=== PATIENT | female | born 1970 | race Caucasian/White ===

== ENCOUNTER 2017-02-05 11:02 | Emergency (ER) | payer SELFPAY ==
[~2017-02-05] VITALS: Ht 162.5 cm; Wt 102.5 kg
[~2017-02-05 11:02] MED LIST: ANAPROX DS550 MG PO; BACTRIM DS 8001 TAB PO; BIAXIN500 MG PO; CLARITIN10 MG PO; IBUPROFEN600 MG PO; LIDEX 0.05% CRE15 GM T; VITAMIN B12100 MCG PO; VITAMIN C100 MG PO; ZITHROMAX Z PA250 MG PO
[2017-02-05] MEDS ORDERED: PREDNISONE10 MG PO (11:29)
== END 2017-02-05 11:31 | disposition home or self-care (01) ==
LOC: ED 11:02
DX: L23.7 Allergic contact dermatitis due to plants, except food (principal); Z88.1 Allergy status to other antibiotic agents; Z88.6 Allergy status to analgesic agent

== ENCOUNTER 2020-03-20 05:49 | Emergency (ER) | payer OTHER ==
[~2020-03-20] VITALS: Ht 162.5 cm; Wt 114.8 kg
[~2020-03-20 05:49] MED LIST changes: +PREDNISONE10 MG PO
[2020-03-20 06:17] LABS: BASO # 0.1 10*3/uL (0.0-0.1); BASO % 0.5 % (0.0-1.0); EOS # 0.3 10*3/uL (0.0-0.4); EOS % 1.2 % (1.0-4.0); HEMATOCRIT 39.3 % (37.0-47.0); LYMPH # 2.9 10*3/uL (1.3-4.4); LYMPH % 13.1 % (27.0-41.0); MEAN CELL VOLUME 83.1 fl (81.0-99.0); MEAN CORPUSCULAR HGB 25.6 pg (27.0-31.0); MEAN CORPUSCULAR HGB CONC 30.8 g/dl (33.0-37.0); MEAN PLATELET VOLUME 9.8 fl (9.6-12.3); MONO # 1.2 10*3/uL (0.1-1.0); MONO % 5.7 % (3.0-9.0); NEUT # 17.3 10*3/uL (2.3-7.9); NEUT % 78.7 % (47.0-73.0); PLATELET COUNT AUTOMATED 515 10*3/uL (130-400); RED BLOOD COUNT 4.73 10*6/uL (4.10-5.10); RED CELL DISTRI WIDTH 14.7 % (0-14.5); WHITE BLOOD COUNT 21.9 10*3/uL (4.8-10.8)
[2020-03-20 06:27] LABS: ACT PARTIAL THROMBO TIME 27.1 SECONDS (20.0-32.1); INTERNATIONAL NORM RATIO 0.9 (2.0-3.5)
[2020-03-20 06:34] LABS: ALBUMIN 3.4 gm/dl (3.1-4.5); ALKALINE PHOSPHATASE 118 U/L (45-117); BUN 11 mg/dl (7-24); CHLORIDE 103 mmol/L (98-107); CREATININE 0.74 mg/dL (0.55-1.02); POTASSIUM 3.7 mmol/L (3.5-5.1); SGOT/AST 30 IU/L (3-35); SGPT/ALT 22 U/L (12-78); SODIUM 136 mmol/L (136-145); TOTAL PROTEIN 7.6 gm/dL (6.4-8.2)
[2020-03-20 06:44] LABS: TROPONIN I < 0.015 ng/ml (<0.045)
== END 2020-03-20 10:54 | disposition home or self-care (01) ==
LOC: ED 05:49
PROVIDERS: Emergency Medicine Emergency Medical Services
DX: R07.9 Chest pain, unspecified (principal); Z88.8 Allergy status to other drugs, medicaments and biological substances; Z79.899 Other long term (current) drug therapy; Z95.9 Presence of cardiac and vascular implant and graft, unspecified

== ENCOUNTER → 2020-04-19 | Outpatient (CLI) | payer OTHER ==
[2020-04-19 18:27] LABS: IRON 26 ug/dL (50-170); TOTAL IRON BINDING CAPACITY 337 ug/dl (250-450)
[2020-04-19 18:39] LABS: FERRITIN 55.6 ng/mL (10.0-291.0); PTH INTACT 47.8 pg/mL (18.5-88.0); VITAMIN D, 25-HYDROXY 14.8 ng/mL (30-100)
== END | disposition home or self-care (01) ==
LOC: LAB 17:38
PROVIDERS: ATTEND Nurse Practitioner Family
DX: E83.51 Hypocalcemia (principal); D64.9 Anemia, unspecified

== ENCOUNTER → 2020-06-01 | Outpatient (CLI) | payer OTHER | END | disposition home or self-care (01) | LOC: MAMMO 15:29 | PROVIDERS: ATTEND Nurse Practitioner Family | DX: Z12.31 Encounter for screening mammogram for malignant neoplasm of breast (principal); N39.3 Stress incontinence (female) (male); N94.10 Unspecified dyspareunia; Z01.419 Encounter for gynecological examination (general) (routine) without abnormal findings ==

== ENCOUNTER → 2020-07-28 | Outpatient (CLI) | payer OTHER | END | disposition home or self-care (01) | LOC: RAD 16:49 | PROVIDERS: ATTEND Nurse Practitioner Family | DX: D72.829 Elevated white blood cell count, unspecified (principal) ==

== ENCOUNTER → 2020-08-31 | Outpatient (CLI) | payer OTHER ==
[2020-08-31 08:43] LABS: BASO # 0.1 10*3/uL (0.0-0.1); BASO % 1.2 % (0.0-1.0); EOS # 0.5 10*3/uL (0.0-0.4); EOS % 4.7 % (1.0-4.0); HEMATOCRIT 41.6 % (37.0-47.0); LYMPH # 2.2 10*3/uL (1.3-4.4); LYMPH % 21.3 % (27.0-41.0); MEAN CELL VOLUME 84.2 fl (81.0-99.0); MEAN CORPUSCULAR HGB 25.7 pg (27.0-31.0); MEAN CORPUSCULAR HGB CONC 30.5 g/dl (33.0-37.0); MEAN PLATELET VOLUME 9.8 fl (9.6-12.3); MONO % 9.5 % (3.0-9.0); NEUT # 6.5 10*3/uL (2.3-7.9); NEUT % 62.3 % (47.0-73.0); PLATELET COUNT AUTOMATED 450 10*3/uL (130-400); RED BLOOD COUNT 4.94 10*6/uL (4.10-5.10); RED CELL DISTRI WIDTH 15.5 % (0-14.5); WHITE BLOOD COUNT 10.5 10*3/uL (4.8-10.8)
[2020-08-31 09:13] LABS: ALBUMIN 3.2 gm/dl (3.1-4.5); ALKALINE PHOSPHATASE 127 U/L (45-117); BUN 12 mg/dl (7-24); CHLORIDE 109 mmol/L (98-107); CHOLESTEROL 223 mg/dL (<200); CREATININE 0.73 mg/dL (0.55-1.02); HDL CHOLESTEROL 37 mg/dl (40-60); LDL CHOLESTEROL 158 mg/dL (9-159); SGOT/AST 22 IU/L (3-35); SGPT/ALT 34 U/L (12-78); SODIUM 140 mmol/L (136-145); TOTAL PROTEIN 7.4 gm/dL (6.4-8.2); TRIGLYCERIDES 141 mg/dl (<150); VLDL CHOLESTEROL 28 mg/dL (6-40)
== END | disposition home or self-care (01) ==
LOC: LAB 08:24
PROVIDERS: ATTEND Family Medicine
DX: Z51.81 Encounter for therapeutic drug level monitoring (principal)

== ENCOUNTER → 2020-11-08 | Outpatient (CLI) | payer OTHER ==
[2020-11-08 16:45] LABS: BASO # 0.1 10*3/uL (0.0-0.1); BASO % 0.6 % (0.0-1.0); EOS # 0.5 10*3/uL (0.0-0.4); EOS % 2.6 % (1.0-4.0); HEMATOCRIT 42.2 % (37.0-47.0); LYMPH # 3.4 10*3/uL (1.3-4.4); LYMPH % 17.2 % (27.0-41.0); MEAN CELL VOLUME 82.7 fl (81.0-99.0); MEAN CORPUSCULAR HGB 26.9 pg (27.0-31.0); MEAN CORPUSCULAR HGB CONC 32.5 g/dl (33.0-37.0); MEAN PLATELET VOLUME 9.9 fl (9.6-12.3); MONO % 5.2 % (3.0-9.0); NEUT # 14.5 10*3/uL (2.3-7.9); PLATELET COUNT AUTOMATED 516 10*3/uL (130-400); RED CELL DISTRI WIDTH 14.7 % (0-14.5); WHITE BLOOD COUNT 19.5 10*3/uL (4.8-10.8)
[2020-11-08 17:19] LABS: ALBUMIN 3.8 gm/dl (3.1-4.5); ALKALINE PHOSPHATASE 125 U/L (45-117); BUN 19 mg/dl (7-24); CHLORIDE 105 mmol/L (98-107); CREATININE 0.83 mg/dL (0.55-1.02); IRON 33 ug/dL (50-170); POTASSIUM 3.6 mmol/L (3.5-5.1); SGOT/AST 14 IU/L (3-35); SGPT/ALT 27 U/L (12-78); SODIUM 140 mmol/L (136-145); TOTAL IRON BINDING CAPACITY 332 ug/dl (250-450); TOTAL PROTEIN 7.9 gm/dL (6.4-8.2)
[2020-11-08 17:28] LABS: FERRITIN 84.1 ng/mL (10.0-291.0); VITAMIN D, 25-HYDROXY 18.5 ng/mL (30-100)
== END | disposition home or self-care (01) ==
LOC: LAB 16:25
PROVIDERS: ATTEND Nurse Practitioner Family
DX: E55.9 Vitamin D deficiency, unspecified (principal); D72.829 Elevated white blood cell count, unspecified; D50.9 Iron deficiency anemia, unspecified